=== PATIENT | female | born 1995 | race African-American/Black ===

== ENCOUNTER 2016-12-25 12:40 | Inpatient (IN) ==
[2016-12-25] MEDS ORDERED: BUTORPHANOL 2 MG/ML VIAL IV PRN (13:37)
[2016-12-25] MEDS ORDERED: DINOPROSTONE VAG GEL 10 MG SYRINGE VAG ONE (13:37)
[2016-12-25] MEDS ORDERED: ONDANSETRON 4 MG/2 ML VIAL IV PRN (13:37)
[2016-12-25] MEDS ORDERED: MEPERIDINE 50 MG/1 ML VIAL IM PRN (13:37)
[2016-12-25 14:03] LABS: Basophils % 0.2 % (0.0-0.8); Eosinophils # 0.1 10*3/uL (0.0-0.87); Eosinophils % 2.1 % (0.00-10.9); Hematocrit 26.2 VOL% (35.7-47.0); Hemoglobin 8.4 GM/DL (12.0-16.0); Immature Granulocytes % 0.6 %; Immature Granulocytes Absolute 0.04 #; Lymphocytes # 1.5 10*3/uL (1.4-4.0); Lymphocytes % 22.3 % (21.3-54.2); Mean Corpuscular HGB Conc 32.1 GM/DL (32-36); Mean Corpuscular Hemoglobin 28 PG (27-34); Mean Corpuscular Volume 85.6 FL (87-102); Mean Platelet Volume 9.5 FL (9.6-12.0); Monocytes # 0.6 10*3/uL (0.11-0.8); Neutrophils # 4.3 10*3/uL (1.4-7.4); Neutrophils % 65.8 % (38.7-73.9); Platelet Count 269 T/CUMM (130-400); Red Blood Count 3.06 MC/CUMM (3.8-5.5); White Blood Count 6.6 T/CUMM (4-12)
[2016-12-25 14:19] LABS: Albumin 2.5 G/DL (3.4-5.0); Bilirubin,Total 0.5 MG/DL (0.2-1.0); Osmolality,Calculated 281.8 MOS/KG (273-304); Potassium 3.6 MMOL/L (3.5-5.1); Total Protein 5.6 G/DL (6.4-8.3)
[2016-12-25] MEDS ORDERED: hydrALAZINE 20 MG/1 ML VIAL IV ONE (17:16)
--- NOTE | 2016-12-25 17:20 | OB/GYN History & Physical ---
History of Present Illness Chief complaint: In for induction of labor due to term and elevated blood pressure History of present illness: Ms. Vora is a 21 year old female who is a primigravida. Her MAYNOR is 2016. Her estimated gestational age is 39 weeks. The patient presents for elective induction of labor due to term and elevated blood pressures. The risk and benefits have been thoroughly discussed with this patient and significant other, plan of care has been discussed with Dr. Jones and all parties are in agreement with plan. [facility], she received routine care and her course was uneventful. labs: She is O+, rubella is immune, RPR is nonreactive, hepatitis B is negative, HIV is negative, the patient was positive for chlamydia she was treated with test of cure negative. Review of systems is negative with exception of above. Home Medications Medication Instructions Recorded Confirmed Type Vit No.124/Iron/Folic 1 tablet PO DAILY MDD ONE TAB 10/22/16 12/25/16 History [ Vitamin Tablet] Allergies Allergy/AdvReac Type Severity Reaction Status Date / Time No Known Allergies Allergy Verified 10/22/16 19:53 12 point system: reviewed and no additional remarkable complaints except as stated Medical,Surgical,& Family Hx - Medical History Medical History: noncontributory - Surgical History Cardiac Surgeries: Patient Denies: Cardiac Catheterization - Family History Family History: Reports;: Family Cancer (maternal aunt), Family Diabetes (mgf) Denies;: Family Anesthesia Reaction, Family Heart Disease, Family Hematology , Family Hypertension, Family Psychiatric Problems, Family Stroke, Additional Family History - Social History Smoking Status: Never smoker Frequency of Alcohol Use: None Type of Drug Use: 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 General appearance: normal weight, no acute distress - Antepartum / Post Antepartum Exam Cervix -Dilatation: 1 cm Effacement: 50% Station: -1 Rupture: Intact Presentation: vtx Heart Rate: 140s Breast: bilateral: normal Abdomen obstetrics: Present: bowel sounds normal Vagina: Present: normal moisture Uterus exam: Present: enlarged Anus/Rectum: Present: normal perianal skin - Head Head exam: Present: normal inspection - Respiratory Respiratory exam: Present: clear to auscultation bilaterally - Cardiovascular Cardiovascular exam: Present: regular rate and rhythm - GI/Abdominal GI/Abdominal exam: Present: normal bowel sounds, soft - Extremities Exam Extremities exam: Present: edema - Back Exam Back exam: Present: normal inspection - Neurological Exam Neurological exam: Present: alert, oriented X3 - Psychiatric Psychiatric exam: Present: normal affect, normal mood - Skin Skin exam: Present: normal color, warm Assessment and Plan (1) Term Status: Acute Assessment and plan: Admit Prostin gel per protocol IV Pitocin per protocol if indicated Epidural anesthesia if desired Artificial rupture membranes when appropriate Anticipate Current Visit: Yes (2) induced hypertension Status: Acute Current Visit: Yes Results - Labs CBC & BMP: 12/25/16 13:52 12/25/16 13:52
[2016-12-25] MEDS: LABETALOL 100 MG TABLET PO SCH (17:29)
[2016-12-25] MEDS: LACTATED RINGERS 1,000 ML IV SCH ×2 (17:29→17:30)
[2016-12-26] MEDS ORDERED: OXYTOCIN/LR 20 UNIT/1,000 ML BAG IV SCH (02:00)
[2016-12-26] MEDS ORDERED: AMPICILLIN INJ 2,000 MG in SODIUM CHLORIDE 0.9% 100 ML IV ONE (02:00)
[2016-12-26] MEDS: LABETALOL 100 MG TABLET PO SCH ×2 (05:30→09:00)
[2016-12-26] MEDS: AMPICILLIN INJ 1,000 MG in SODIUM CHLORIDE 0.9% 100 ML IV SCH ×3 (05:31→14:25)
[2016-12-26] MEDS ORDERED: CITRIC ACID/SODIUM CITRATE 30 ML UDCUP ONE (09:08)
[2016-12-26] MEDS ORDERED: CITRIC ACID/SODIUM CITRATE 30 ML UDCUP PO ONE (09:20)
[2016-12-26] MEDS ORDERED: FAMOTIDINE 20 MG/2 ML VIAL IV ONE (09:21)
[2016-12-26] MEDS ORDERED: fentaNYL 2 MCG/ROPIV 0.2% EPID 150 ML EPIDURAL ONE (10:00)
[2016-12-26] MEDS ORDERED: hydrOXYzine HCL 25 MG/1 ML VIAL IM PRN (10:07)
[2016-12-26] MEDS ORDERED: PROMETHAZINE 25 MG/1 ML VIAL IM ONE (10:07)
[2016-12-26] MEDS ORDERED: diphenhydrAMINE 50 MG/1 ML VIAL IV PRN ×2 (10:07)
[2016-12-26] MEDS ORDERED: ePHEDrine 50 MG/ML AMP IV PRN (10:07)
[2016-12-26] MEDS ORDERED: fentaNYL 2 MCG/ROPIV 0.2% EPID 150 ML EPIDURAL SCH (10:07)
--- NOTE | 2016-12-26 10:07 | Event Note ---
900: AROM with clear fluid noted. The patient is 4 cm/80%/ and a -2 station. Vertex presentation.
[2016-12-26 12:30] LABS: Apearance,Urine CLEAR (Clear); Bilirubin,Urine Negative (Negative); Blood, Urine Large mg/dL (Negative); Glucose,Urine (UA) Negative (Negative); Ketones,Urine 20 mg/dL (Negative); Mucus,Urine Occasional /LPF (Occasional); Nitrite,Urine Negative (Negative); Protein,Urine Negative; RBC,Urine 307 /HPF (0-4); Squamous Epithelial Cell,Urine Occasional /HPF (0-10); Urine Color Yellow (Yellow); Urine Urobilinogen < 2.0 EU/DL (0.2-1.0); WBC,Urine 1 /HPF (0-6)
[2016-12-26] MEDS: LACTATED RINGERS 1,000 ML IV SCH ×2 (12:40→12:51)
[2016-12-26] MEDS ORDERED: OXYTOCIN 10 UNIT/ML VIAL ONE (18:30)
[2016-12-26] MEDS ORDERED: ONDANSETRON 4 MG/2 ML VIAL ONE (18:40)
[2016-12-26] MEDS ORDERED: PHENYLEPHRINE 1 MG/10 ML SYRINGE IV ONE (18:40)
[2016-12-26 19:17] LABS: Cord Arterial Blood HCO3 24.1 MMOL/L
[2016-12-26 19:20] LABS: Cord Venous Blood HCO3 19.8 MMOL/L; Cord Venous Blood PCO2 38.4 MMHG
[2016-12-26] MEDS ORDERED: fentaNYL 100 MCG/2 ML VIAL ONE (19:33)
[2016-12-26] MEDS ORDERED: MORPHINE 10 MG/10 ML VIAL ONE (19:33)
[2016-12-26] MEDS ORDERED: OXYTOCIN/LR 30 UNIT/1,000 ML BAG IV ONE (19:37)
[2016-12-26] MEDS ORDERED: OXYTOCIN/LR 20 UNIT/1,000 ML BAG IV ONE (22:12)
[2016-12-26] MEDS ORDERED: ACETAMINOPHEN 325 MG TABLET PO PRN (22:12)
[2016-12-26] MEDS ORDERED: RHO(D) IMMUNE GLOBULIN 300 MCG SYRINGE IM ONE (22:12)
[2016-12-26] MEDS ORDERED: ONDANSETRON 4 MG/2 ML VIAL IV PRN (22:12)
[2016-12-26] MEDS ORDERED: IBUPROFEN 800 MG TABLET PO PRN (22:12)
--- NOTE | 2016-12-26 22:12 | Operative Note ---
Date of procedure: 12/26/16 Procedure: Preoperative diagnosis: 39 weeks, failure to progress Postoperative diagnosis: Same Anesthesia:[] Regional anesthesia Estimated blood loss: [] Less than 500 Surgeon: Dr. Jones Findings: [] Male infant, 8 lbs. 5 oz., Apgars were 8 at 1 minute 9 at 5 minutes , delivery time was 1904 p.m., occiput posterior Complications: None Procedure: Low transverse section The patient was taken to the operating suite heart tones were obtained prior to and after regional anesthesia was obtained. She was placed in supine position her abdomen was prepped and draped in usual manner for major abdominal surgery. Through an abdominal incision the skin, subcutaneous, fascial layer and peritoneal the abdomen was entered. The bladder flap was created and a low transverse incision was made.. Fluid was clear and normal amount X, Apgars, the placenta was delivered and sent to lab for further evaluation. Injected with intrauterine Pitocin. The first layer of the uterus was closed with #1 Vicryl in a continuous locking manner. Close to imbricate the first layer with #1 Vicryl. The peritoneum was approximated with #2-0 Vicryl.[] All the last sponges and instruments were accounted for -2.) #2-0 Vicryl. Fascia was approximated with #0-0 Maxon.. The skin was approximated with rocky. She tolerated procedure well and was taken to recovery room in stable condition. Surgeon / Physician: Marquise Jones Results - Labs CBC & BMP: 12/25/16 13:52 12/25/16 13:52 Discharge Plan - Discharge Medications No Action Vit No.124/Iron/Folic [ Vitamin Tablet] 1 tablet PO DAILY MDD ONE TAB - Follow Up or Referral - Forms/Instructions
[2016-12-26] MEDS ORDERED: LACTATED RINGERS 1,000 ML IV SCH (22:30)
--- NOTE | 2016-12-26 23:07 | Anesthesia Post-Op ---
Anesthesia Post OP - Post Ansesthetic Evaluation Patient seen in post op: Yes Resp: within normal limits CV: within normal limits Mental: within normal limits Temp: within normal limits [id number]: within normal limits Nausea and Vomiting: within normal limits Pain: within normal limits
[2016-12-27 05:28] LABS: Basophils % 0.1 % (0.0-0.8); Eosinophils % 0.1 % (0.00-10.9); Hematocrit 22.8 VOL% (35.7-47.0); Immature Granulocytes % 0.7 %; Immature Granulocytes Absolute 0.14 #; Lymphocytes # 1.4 10*3/uL (1.4-4.0); Lymphocytes % 7.4 % (21.3-54.2); Mean Corpuscular HGB Conc 30.7 GM/DL (32-36); Mean Corpuscular Hemoglobin 28 PG (27-34); Mean Corpuscular Volume 89.4 FL (87-102); Mean Platelet Volume 9.3 FL (9.6-12.0); Monocytes # 1.5 10*3/uL (0.11-0.8); Monocytes % 7.5 % (1.7-12.7); Neutrophils # 16.4 10*3/uL (1.4-7.4); Neutrophils % 84.2 % (38.7-73.9); Platelet Count 236 T/CUMM (130-400); Red Blood Count 2.55 MC/CUMM (3.8-5.5); Red Cell Distribution Width 14.4 % (9.3-17.3); White Blood Count 19.5 T/CUMM (4-12)
[2016-12-27 05:52] LABS: Acanthocytes Few; Anisocytosis Slight; Macrocytosis Slight; Platelet Estimate Normal
[2016-12-27] MEDS: MAGNESIUM HYDROXIDE SUSP 30 ML UDCUP PO PRN ×2 (08:53→22:59)
[2016-12-27] MEDS: DOCUSATE SODIUM 100 MG CAPSULE PO SCH ×2 (08:53→20:52)
[2016-12-27] MEDS: MULTIVITAMIN (PRENATAL) TABLET PO SCH (08:53)
[2016-12-27] MEDS: FERROUS SULFATE 325 MG TABLET PO SCH ×3 (08:53→20:52)
--- NOTE | 2016-12-27 09:41 | OB/GYN Progress Note ---
Assessment and Plan (1) Term Status: Acute Assessment and plan: Admit Prostin gel per protocol IV Pitocin per protocol if indicated Epidural anesthesia if desired Artificial rupture membranes when appropriate Anticipate Current Visit: Yes (2) induced hypertension Status: Acute Current Visit: Yes (3) Vaginal delivery Status: Acute Assessment and plan: Initiate routine orders. 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 with . 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 Vitals: Vital Signs Temp Pulse Resp BP Pulse Ox 12/27/16 07:32 97.5 F L 88 20 127/89 99 12/27/16 03:31 96.8 F L 74 18 122/77 98 12/27/16 01:45 18 12/27/16 00:15 97.4 F L 80 18 144/74 98 12/26/16 23:15 97.8 F 85 18 135/88 98 12/26/16 22:15 97.4 F L 74 18 134/88 97 12/26/16 21:45 97.8 F 98 H 18 133/77 97 12/26/16 21:15 97.3 F L 112 H 18 137/88 97 12/26/16 12:00 97.2 F L 12/26/16 11:29 97.3 F L General appearance: no acute distress - Antepartum / Post Post Exam Breast: bilateral: normal Abdomen obstetrics: Present: bowel sounds normal Vagina: Present: discharge Uterus exam: Present: enlarged (FF ML) Anus/Rectum: Present: normal perianal skin - Respiratory Respiratory exam: Present: clear to auscultation bilaterally - Cardiovascular Cardiovascular exam: Present: regular rate and rhythm - GI/Abdominal GI/Abdominal exam: Present: normal bowel sounds, soft - Extremities Exam Extremities exam: Present: normal inspection - Back Exam Back exam: Present: normal inspection - Neurological Exam Neurological exam: Present: alert, oriented X3 - Psychiatric Psychiatric exam: Present: normal affect, normal mood - Skin Skin exam: Present: normal color, warm Results - Labs CBC & BMP: 12/27/16 04:48 12/25/16 13:52
[2016-12-27] MEDS ORDERED: SODIUM CHLORIDE 0.9% 250 ML IV PRN (09:43)
[2016-12-27] MEDS ORDERED: PROMETHAZINE 25 MG/1 ML VIAL ONE (10:30)
[2016-12-27] MEDS ORDERED: PROMETHAZINE 25 MG/1 ML VIAL IM PRN (10:59)
[2016-12-27 16:44] LABS: Hematocrit 30.9 VOL% (35.7-47.0)
[2016-12-27 16:49] LABS: Hemoglobin 10.2 GM/DL (12.0-16.0)
[2016-12-28 06:56] LABS: Basophils % 0.2 % (0.0-0.8); Eosinophils # 0.2 10*3/uL (0.0-0.87); Eosinophils % 0.9 % (0.00-10.9); Hematocrit 29.9 VOL% (35.7-47.0); Hemoglobin 9.9 GM/DL (12.0-16.0); Immature Granulocytes % 0.7 %; Immature Granulocytes Absolute 0.13 #; Lymphocytes # 2.7 10*3/uL (1.4-4.0); Lymphocytes % 15.4 % (21.3-54.2); Mean Corpuscular HGB Conc 33.1 GM/DL (32-36); Mean Corpuscular Hemoglobin 29 PG (27-34); Mean Corpuscular Volume 86.4 FL (87-102); Mean Platelet Volume 9.3 FL (9.6-12.0); Monocytes # 1.5 10*3/uL (0.11-0.8); Monocytes % 8.8 % (1.7-12.7); NRBC # 0.02 10*3/uL; Neutrophils # 12.9 10*3/uL (1.4-7.4); Platelet Count 223 T/CUMM (130-400); Red Blood Count 3.46 MC/CUMM (3.8-5.5); Red Cell Distribution Width 14.2 % (9.3-17.3); White Blood Count 17.4 T/CUMM (4-12)
[2016-12-28] MEDS: MULTIVITAMIN (PRENATAL) TABLET PO SCH (08:20)
[2016-12-28] MEDS: FERROUS SULFATE 325 MG TABLET PO SCH ×3 (08:20→22:45)
[2016-12-28] MEDS: DOCUSATE SODIUM 100 MG CAPSULE PO SCH ×2 (08:20→22:45)
[2016-12-28] MEDS ORDERED: LABETALOL 100 MG TABLET PO SCH (09:00)
--- NOTE | 2016-12-28 10:21 | OB/GYN Progress Note ---
Assessment and Plan (1) Term Status: Acute Assessment and plan: Admit Prostin gel per protocol IV Pitocin per protocol if indicated Epidural anesthesia if desired Artificial rupture membranes when appropriate Anticipate Current Visit: Yes (2) induced hypertension Status: Acute Current Visit: Yes (3) Vaginal delivery Status: Acute Assessment and plan: Initiate routine orders. 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 Vitals: Vital Signs Temp Pulse Pulse Resp BP BP Pulse Ox 12/28/16 09:36 100 H 18 117/77 12/28/16 07:14 97.4 F L 55 L 18 159/99 12/28/16 03:39 97.2 F L 64 18 133/79 12/27/16 23:35 98.0 F 62 18 151/90 12/27/16 19:41 98.5 F 78 18 140/81 12/27/16 15:49 97.8 F 73 20 138/92 12/27/16 15:45 97.8 F 73 20 138/92 98 12/27/16 14:00 85 20 132/70 99 12/27/16 13:00 98.1 F 76 20 128/76 99 12/27/16 12:30 98.0 F 79 20 123/75 99 12/27/16 12:25 98.2 F 87 18 114/90 99 12/27/16 12:20 98.2 F 85 18 123/69 98 12/27/16 12:15 98.2 F 87 20 120/76 99 12/27/16 12:00 98.2 F 86 20 133/72 12/27/16 11:50 98.1 F 84 18 137/82 99 12/27/16 10:50 98.0 F 89 18 132/87 99 12/27/16 10:20 98.1 F 93 H 18 139/81 99 Pulse Ox 12/28/16 09:36 12/28/16 07:14 98 12/28/16 03:39 97 12/27/16 23:35 96 12/27/16 19:41 98 12/27/16 15:49 98 12/27/16 15:45 12/27/16 14:00 12/27/16 13:00 12/27/16 12:30 12/27/16 12:25 12/27/16 12:20 12/27/16 12:15 12/27/16 12:00 99 12/27/16 11:50 12/27/16 10:50 12/27/16 10:20 General appearance: no acute distress - Antepartum / Post Post Exam Breast: bilateral: normal Abdomen obstetrics: Present: bowel sounds normal Vagina: Present: normal moisture, discharge (Light lochia rubra) Uterus exam: Present: enlarged Anus/Rectum: Present: normal perianal skin - Respiratory Respiratory exam: Present: clear to auscultation bilaterally - Cardiovascular Cardiovascular exam: Present: regular rate and rhythm - GI/Abdominal GI/Abdominal exam: Present: normal bowel sounds, soft - Extremities Exam Extremities exam: Present: normal inspection - Back Exam Back exam: Present: normal inspection - Neurological Exam Neurological exam: Present: alert, oriented X3 - Psychiatric Psychiatric exam: Present: normal affect, normal mood - Skin Skin exam: Present: normal color, warm Results - Labs CBC & BMP: 12/28/16 06:29 12/25/16 13:52
[2016-12-28] MEDS: SIMETHICONE CHEW 80 MG TABLET PO PRN (22:45)
[2016-12-29] MEDS: MAGNESIUM HYDROXIDE SUSP 30 ML UDCUP PO PRN (09:30)
[2016-12-29] MEDS: DOCUSATE SODIUM 100 MG CAPSULE PO SCH (09:30)
[2016-12-29] MEDS: FERROUS SULFATE 325 MG TABLET PO SCH ×2 (09:30→17:31)
[2016-12-29] MEDS: MULTIVITAMIN (PRENATAL) TABLET PO SCH (09:30)
[2016-12-29] MEDS: SIMETHICONE CHEW 80 MG TABLET PO PRN (09:30)
[2016-12-29 11:41] VITALS: BP 154/101
--- NOTE | 2016-12-29 13:51 | Discharge Summary ---
Hospital Course - Hospital Course Hospital Course: 21-year-old status post section secondary to failure to progress, blood pressure has been slightly elevated since her delivery. She is without headaches blurred vision right upper quadrant pain. Her incision sites intact extremities well within normal limits neurologic grossly intact assessment plan this patient will be discharged today in follow-up our office in approximately 2 weeks. Thank my dictation Specialty Discharge - Follow Up or Referrals Follow up with: Marquise Jones MD [Physician] - 01/23/17 10:00 am Discharge Plan - Discharge Data Disposition: Disch To Home/Self Care Condition at Discharge: Stable Discharge Diet: advance to your usual diet Activity: increase activity as tolerated Hygiene: may shower Weight Bearing at Discharge: full weight bearing Contact your physician if you experience:: fever over 101, Bleeding - Discharge Medications New HYDROcodone/ACETAMIN 5-325 [[place] 5-325] 2 tablet PO Q6H PRN #30 tablet PRN Reason: Pain Severe (8-10) Ibuprofen Tab [Motrin Tab] 800 mg PO Q8H PRN #60 tablet PRN Reason: Pain Severe (8-10) NIFEdipine XL TAB [Procardia Xl] 30 mg PO DAILY #30 tablet No Action Vit No.124/Iron/Folic [ Vitamin Tablet] 1 tablet PO DAILY MDD ONE TAB - Follow Up or Referral Follow Up: Marquise Jones MD [Physician] - 01/23/17 10:00 am - Forms/Instructions Instructions: Section (DC), Perineal Care (DC), Bleeding (DC) Exam - Constitutional Vitals: Period Temp Pulse Resp BP Sys/Mackenzie Pulse Ox Last 24 Hr 97 F-98.6 F 60-72 18-20 127-160/69-101 95-98 General appearance: normal weight - Head Head exam: Present: normal inspection - Eye Eye exam: Present: EOMI Pupils: Present: TIEN - ENT ENT exam: Present: normal exam - Neck Neck exam: Present: normal inspection - Respiratory Respiratory exam: Present: clear to auscultation bilaterally - Cardiovascular Cardiovascular exam: Present: regular rate and rhythm - GI/Abdominal GI/Abdominal exam: Present: normal bowel sounds, other (Incision sites intact) - Back Exam Back exam: Present: normal inspection - Psychiatric Psychiatric exam: Present: normal affect - Skin Skin exam: Present: normal color DS: Provider Date of admission: 12/25/16 13:38 Primary care physician: . No PCP Attending physician on admission: Marquise Jones MD Consults: 12/25/16 13:38 Consult to Anesthesiology [CONS] Routine Consulting Provider: Reason for Anesthesiology: Epidural Consult Comment: Epidural for pain managment 12/26/16 22:13 Consult to Retail Management Trainee [CONS] Routine Consult Retail Management Trainee: Breast Feeding Discharging clinician: Marquise Jones MD
[2016-12-29] MEDS ORDERED: BISACODYL 10 MG SUPP RECTAL ONE (14:18)
[2016-12-29] MEDS ORDERED: FUROSEMIDE 40 MG TABLET PO ONE (14:18)
== END 2016-12-29 17:45 | disposition home or self-care (01) | DRG 766 ==
LOC: N.LDOUT 12:40 → N.LD 12:42 → N.OB 12-26 21:02
PROVIDERS: ADMIT Obstetrics & Gynecology; ATTEND Obstetrics & Gynecology
PROC: LDCSECT (ICD-10-PCS; 2016-12-26 18:40)

== ENCOUNTER 2019-09-05 02:53 | Inpatient (IN) ==
[2019-09-05] MEDS ORDERED: LACTATED RINGERS 1,000 ML IV ONE (03:14)
[2019-09-05 03:21] LABS: Apearance,Urine Slightly Hazy (Clear); Bacteria,Urine Occasional /HPF (Few); Bilirubin,Urine Negative (Negative); Blood, Urine Small mg/dL (Negative); Glucose,Urine (UA) Negative (Negative); Ketones,Urine Negative (Negative); Mucus,Urine Occasional /LPF (Occasional); Nitrite,Urine Negative (Negative); Protein,Urine Negative; RBC,Urine 10 /HPF (0-4); Squamous Epithelial Cell,Urine Occasional /HPF (0-10); Urine Color Yellow (Yellow); Urine Specific Gravity 1.009 (1.001-1.035); Urine Urobilinogen < 2.0 EU/DL (0.2-1.0); WBC,Urine 55 /HPF (0-6)
[2019-09-05] MEDS ORDERED: CITRIC ACID/SODIUM CITRATE 30 ML UDCUP PO ONE (03:27)
[2019-09-05] MEDS ORDERED: ceFAZolin 2,000 MG in PREMIX 1 EACH IV ONE (03:27)
[2019-09-05] MEDS ORDERED: LACTATED RINGERS 1,000 ML IV SCH ×2 (03:30→05:30)
[2019-09-05] MEDS ORDERED: FAMOTIDINE 20 MG/2 ML VIAL IV ONE (03:30)
[2019-09-05] MEDS ORDERED: CLINDAMYCIN INJ 900 MG in PREMIX 1 EACH IV ONE (03:34)
[2019-09-05] MEDS ORDERED: OXYTOCIN 10 UNIT/ML VIAL IM ONE (03:36)
[2019-09-05] MEDS ORDERED: OXYTOCIN/LR 30 UNIT/1,000 ML BAG IV ONE (03:36)
[2019-09-05] MEDS ORDERED: miSOPROStoL 200 MCG TABLET ONE (03:40)
[2019-09-05] MEDS ORDERED: CARBOPROST TROMETHAMINE 250 MCG/ML AMP IM ONE (03:41)
[2019-09-05] MEDS ORDERED: METHYLERGONOVINE 0.2 MG/1 ML AMP ONE (03:41)
[2019-09-05 03:45] LABS: Basophils % 0.2 % (0.0-0.8); Eosinophils # 0.2 10*3/uL (0.0-0.87); Eosinophils % 1.9 % (0.00-10.9); Hematocrit 33.9 VOL% (35.7-47.0); Hemoglobin 10.5 GM/DL (12.0-16.0); Immature Granulocytes % 0.6 %; Immature Granulocytes Absolute 0.06 #; Lymphocytes # 2.7 10*3/uL (1.4-4.0); Lymphocytes % 27.2 % (21.3-54.2); Mean Corpuscular Volume 91.1 FL (87-102); Mean Platelet Volume 8.7 FL (9.6-12.0); Monocytes % 10.7 % (1.7-12.7); Neutrophils % 59.4 % (38.7-73.9); Platelet Count 243 T/CUMM (130-400); Red Blood Count 3.72 MC/CUMM (3.8-5.5); White Blood Count 9.8 T/CUMM (4-12)
[2019-09-05] MEDS ORDERED: MORPHINE 10 MG/10 ML VIAL ONE (03:57)
[2019-09-05] MEDS ORDERED: PHENYLEPHRINE 1 MG/10 ML SYRINGE IV ONE (03:57)
[2019-09-05] MEDS ORDERED: fentaNYL 100 MCG/2 ML VIAL ONE (03:57)
[2019-09-05] MEDS ORDERED: ONDANSETRON 4 MG/2 ML VIAL ONE (03:58)
[2019-09-05] MEDS ORDERED: BUPIVACAINE SPINAL 0.75% 2 ML AMP SPINAL ONE (03:58)
[2019-09-05 04:11] LABS: Alanine Aminotransferase 12 U/L (13-56); Albumin 2.4 G/DL (3.4-5.0); Alkaline Phosphatase 111 U/L (45-117); Aspartate Amino Transferase 13 U/L (0-37); Bilirubin,Total < 0.39 MG/DL (0.2-1.0); Blood Urea Nitrogen 5 MG/DL (7-18); Calcium 8.4 MG/DL (8.5-10.1); Estimated Glom Filtration Rate 164 ML/MIN; Glucose 85 MG/DL (74-106); Osmolality,Calculated 274.4 MOS/KG (273-304); Total Protein 6.4 G/DL (6.4-8.3)
[2019-09-05 04:38] LABS: Cord Arterial Blood HCO3 20.4 MMOL/L
[2019-09-05 04:39] LABS: Cord Venous Blood HCO3 22.4 MMOL/L; Cord Venous Blood PCO2 44.5 MMHG; Cord Venous Blood PO2 23.5 MMHG
[2019-09-05] MEDS ORDERED: ONDANSETRON 4 MG/2 ML VIAL IV PRN (05:05)
[2019-09-05] MEDS ORDERED: ACETAMINOPHEN 325 MG TABLET PO PRN (05:05)
[2019-09-05] MEDS ORDERED: RHO(D) IMMUNE GLOBULIN 300 MCG SYRINGE IM ONE (05:05)
[2019-09-05] MEDS ORDERED: OXYTOCIN/LR 20 UNIT/1,000 ML BAG IV ONE ×2 (05:05→05:06)
[2019-09-05 06:56] LABS: Barbiturates Screen,Urine Negative (Negative); Benzodiazepines Screen,Urine Negative (Negative); Cannabinoid Screen,Urine Negative (Negative); Opiate Screen,Urine Negative (Negative); Phencyclidine Screen,Urine Negative (Negative)
[2019-09-05 07:26] LABS: Basophils % 0.2 % (0.0-0.8); Eosinophils # 0.1 10*3/uL (0.0-0.87); Eosinophils % 0.5 % (0.00-10.9); Hematocrit 31.6 VOL% (35.7-47.0); Hemoglobin 9.8 GM/DL (12.0-16.0); Immature Granulocytes % 0.4 %; Immature Granulocytes Absolute 0.04 #; Lymphocytes # 1.4 10*3/uL (1.4-4.0); Lymphocytes % 14.7 % (21.3-54.2); Mean Corpuscular Volume 91.1 FL (87-102); Monocytes % 8.1 % (1.7-12.7); Neutrophils % 76.1 % (38.7-73.9); Platelet Count 225 T/CUMM (130-400); Red Blood Count 3.47 MC/CUMM (3.8-5.5); Red Cell Distribution Width 14.1 % (9.3-17.3); White Blood Count 9.2 T/CUMM (4-12)
[2019-09-05] MEDS: IBUPROFEN 800 MG TABLET PO PRN ×2 (08:53→19:34)
[2019-09-05] MEDS: MULTIVITAMIN (PRENATAL) TABLET PO SCH (08:54)
[2019-09-05] MEDS: DOCUSATE SODIUM 100 MG CAPSULE PO SCH ×2 (08:54→20:55)
[2019-09-05] MEDS: SIMETHICONE CHEW 80 MG TABLET PO PRN (08:55)
[2019-09-05] MEDS: CLINDAMYCIN INJ 900 MG in PREMIX 1 EACH IV SCH ×2 (13:18→20:24)
[2019-09-05] MEDS: METOCLOPRAMIDE 10 MG TABLET PO SCH (19:35)
[2019-09-06] MEDS: METOCLOPRAMIDE 10 MG TABLET PO SCH ×3 (03:58→20:04)
[2019-09-06 05:58] LABS: Basophils % 0.1 % (0.0-0.8); Eosinophils # 0.2 10*3/uL (0.0-0.87); Eosinophils % 1.3 % (0.00-10.9); Hematocrit 30.5 VOL% (35.7-47.0); Hemoglobin 9.6 GM/DL (12.0-16.0); Immature Granulocytes % 0.7 %; Lymphocytes # 2.2 10*3/uL (1.4-4.0); Mean Corpuscular HGB Conc 31.5 GM/DL (32-36); Mean Platelet Volume 8.9 FL (9.6-12.0); Neutrophils % 72.9 % (38.7-73.9); Platelet Count 236 T/CUMM (130-400); Red Blood Count 3.35 MC/CUMM (3.8-5.5); White Blood Count 13.5 T/CUMM (4-12)
[2019-09-06] MEDS: MULTIVITAMIN (PRENATAL) TABLET PO SCH (08:24)
[2019-09-06] MEDS: DOCUSATE SODIUM 100 MG CAPSULE PO SCH ×2 (08:24→21:17)
[2019-09-06] MEDS: SIMETHICONE CHEW 80 MG TABLET PO PRN ×2 (08:24→17:10)
[2019-09-06] MEDS: MAGNESIUM HYDROXIDE SUSP 30 ML UDCUP PO PRN ×2 (08:24→21:17)
[2019-09-06] MEDS: IBUPROFEN 800 MG TABLET PO PRN (17:10)
[2019-09-07] MEDS: IBUPROFEN 800 MG TABLET PO PRN (04:12)
[2019-09-07 06:20] LABS: Basophils % 0.2 % (0.0-0.8); Eosinophils # 0.2 10*3/uL (0.0-0.87); Eosinophils % 1.5 % (0.00-10.9); Hematocrit 27.3 VOL% (35.7-47.0); Hemoglobin 8.7 GM/DL (12.0-16.0); Immature Granulocytes % 1.7 %; Immature Granulocytes Absolute 0.17 #; Lymphocytes % 19.9 % (21.3-54.2); Mean Corpuscular HGB Conc 31.9 GM/DL (32-36); Mean Corpuscular Volume 90.7 FL (87-102); Mean Platelet Volume 8.8 FL (9.6-12.0); Monocytes % 8.9 % (1.7-12.7); Neutrophils % 67.8 % (38.7-73.9); Platelet Count 233 T/CUMM (130-400); Red Blood Count 3.01 MC/CUMM (3.8-5.5)
[2019-09-07] MEDS: METOCLOPRAMIDE 10 MG TABLET PO SCH ×2 (07:43→13:46)
[2019-09-07] MEDS: DOCUSATE SODIUM 100 MG CAPSULE PO SCH (08:16)
[2019-09-07] MEDS: MULTIVITAMIN (PRENATAL) TABLET PO SCH (08:17)
[2019-09-07] MEDS: MAGNESIUM HYDROXIDE SUSP 30 ML UDCUP PO PRN (08:17)
[2019-09-07] MEDS: SIMETHICONE CHEW 80 MG TABLET PO PRN (08:17)
[2019-09-07 10:19] VITALS: BP 113/57
== END 2019-09-07 13:25 | disposition home or self-care (01) | DRG 788 ==
LOC: N.LDOUT 02:53 → N.LD 02:54 → N.OB 10:18
PROVIDERS: ADMIT Obstetrics & Gynecology; ATTEND Obstetrics & Gynecology
PROC: LDCSECT (ICD-10-PCS; 2019-09-05 04:00)